=== PATIENT | female | born 1990 | race Hispanic/Latino ===

== ENCOUNTER 2019-05-07 14:31 | Emergency (ER) | payer OTHER ==
[~2019-05-07] VITALS: Ht 154.9 cm; Wt 68.7 kg
[2019-05-07] MEDS ORDERED: NUVAMIS2 PV (14:42)
[2019-05-07 15:49] LABS: HEMATOCRIT 39.8 % (36.0-47.0); HEMOGLOBIN 13.4 g/dl (12.0-15.5); MEAN CORPUSCULAR HEMOGLOBIN 29.5 pg (27.0-33.0); MEAN CORPUSCULAR HGB CONC 33.7 g/dl (32.0-36.5); MEAN CORPUSCULAR VOLUME 87.5 fl (80.0-96.0); PLATELET COUNT, AUTOMATED 282 10^3/uL (150-450); RED BLOOD COUNT 4.55 10^6/uL (4.00-5.40); WHITE BLOOD COUNT 7.3 10^3/uL (4.0-10.0)
[2019-05-07] MEDS ORDERED: PROV10TA PO (17:37)
[2019-05-07 17:42] VITALS: BP 121/69
--- NOTE | 2019-05-07 18:22 | REPVR ---
PROCEDURE INFORMATION: Exam: US Pelvis Complete, Transabdominal Exam date and time: 05/07/2019 5:35 PM Age: 28 years old Clinical indication: Menstruation abnormalities; Excessive menstruation; Additional info: Heavy vaginal bleeding TECHNIQUE: Imaging protocol: Real-time transabdominal pelvic ultrasound with image documentation. Complete exam. COMPARISON: No relevant prior studies available. FINDINGS: Uterus/cervix: Uterus measures 8 x 4.5 x 5.1 cm. The endometrial bilayer is normal in appearance measuring 4.3 mm in width. Right adnexa: Right ovary is normal appearance measuring 3.2 x 1.6 x 1.9 cm. Blood flow is detected. Left adnexa: Left ovary is normal appearance measuring 2.5 x 1.6 x 1.7 cm. Blood flow is detected. Free fluid: No free fluid in the cul-de-sac. Bladder: Only partially imaged. IMPRESSION: Normal pelvic ultrasound. Electronically signed by: Concetta Zavala On 05/07/2019 18:22:33 PM
== END 2019-05-07 17:46 | disposition home or self-care (01) ==
LOC: M ED 15:51
DX: N92.0 Excessive and frequent menstruation with regular cycle (principal); Z79.3 Long term (current) use of hormonal contraceptives